=== PATIENT | male | born 1995 | race Caucasian/White ===

== ENCOUNTER 2017-02-25 18:22 | Emergency (ER) | payer BC ==
--- NOTE | 2017-02-25 20:37 | ED ---
Upper Extremity Pain - HPI Summary HPI Summary: 21 yr old male with left ring finger pain. he jammed it on a basketball yesterday. Complains of pain,5/10 at the PIP joint 4th digit with associated swelling, decreased range of motion. - History of Current Complaint Chief Complaint: UCUpperExtremity Stated Complaint: FINGER INJURY Time Seen by Provider: 02/25/17 20:22 - Allergies/Home Medications Allergies/Adverse Reactions: Allergies Allergy/AdvReac Type Severity Reaction Status Date / Time No Known Allergies Allergy Verified 02/25/17 20:19 Home Medications: Home Medications NK [No Home Medications Reported] 02/25/17 [History Confirmed 02/25/17] PMH/Surg Hx/FS Hx/Imm Hx Previously Healthy: Yes - Surgical History Hx Anesthesia Reactions: No Infectious Disease History: No Infectious Disease History: Denies: Traveled Outside the [place] in Last 30 Days - Family History Known Family History: Positive: None - Social History Occupation: Student Alcohol Use: Weekly Alcohol Amount: once a week Substance Use Type: Reports: None Smoking Status (MU): Never Smoked Tobacco Review of Systems Constitutional: Negative All Other Systems Reviewed And Are Negative: Yes Physical Exam Triage Information Reviewed: Yes Vital Signs On Initial Exam: Initial Vitals Temp Pulse Resp BP Pulse Ox 98.7 F 60 15 122/71 100 02/25/17 20:15 02/25/17 20:15 02/25/17 20:15 02/25/17 20:15 02/25/17 20:15 Vital Signs Reviewed: Yes Appearance: Positive: Well-Appearing, No Pain Distress Skin: Positive: Warm Head/Face: Positive: Normal Head/Face Inspection Eyes: Positive: EOMI ENT: Positive: Normal ENT inspection Neck: Positive: Nontender Respiratory/Lung Sounds: Positive: Clear to Auscultation, Breath Sounds Present Cardiovascular: Positive: RRR. Negative: Murmur Musculoskeletal: Positive: Other - left hand ring finger with swelling and bruise over the PIP joint. He has intact sensation and neurovasculature. decreased ROM to the PIP of that same finger. Neurological: Positive: Sensory/Motor Intact, Alert, Oriented to Person Place, Time Psychiatric: Positive: Normal - Marian Coma Scale Best Eye Response: 4 - Spontaneous Best Motor Response: 6 - Obeys Commands Best Verbal Response: 5 - Oriented Procedures - Splinting Location: left ring finger Pre-Made Type: metal - 4 1/2 inch long foam metal splint Splint: volar - with 3rd and 4th fingers taped together. Pre-Proc Neuro Vasc Exam: normal Post-Proc Neuro Vasc Exam: normal Diagnostics - Vital Signs Vital Signs Temp Pulse Resp BP Pulse Ox 02/25/17 20:15 98.7 F 60 15 122/71 100 - Laboratory Lab Statement: Any lab studies that have been ordered have been reviewed, and results considered in the medical decision making process. - Radiology left ring finger Xray Interpretation: Positive (See Comments) - [facility] Radiology Interpretation Completed By: Radiologist Course/Dx - Course Course Of Treatment: patient with finger sprain left ring. - Diagnoses Provider Diagnoses: Sprain of finger of left hand Discharge - Discharge Plan Condition: Good Disposition: HOME Patient Education Materials: Finger Sprain (ED) Referrals: No Primary Care Phys,NOPCP [Primary Care Provider] - Ernesto Nguyen MD [Medical Doctor] - 2 Days
--- NOTE | 2017-02-25 21:03 | RAD ---
Indication: Fourth finger injury. 3 views of left ring finger are reviewed. Soft tissue swelling is noted at the proximal interphalangeal joint. No fracture is noted. IMPRESSION: Proximal interphalangeal joint swelling without fracture.
== END 2017-02-25 21:22 | disposition home or self-care (01) ==
LOC: UCCORT 18:22
DX: S63.615A Unspecified sprain of left ring finger, initial encounter (principal); W21.05XA Struck by basketball, initial encounter; Y93.67 Activity, basketball; Y92.9 Unspecified place or not applicable
CPT/HCPCS: 73140; 99201; G0463

== ENCOUNTER 2017-07-09 15:50 | Emergency (ER) | payer BC ==
--- NOTE | 2017-07-09 18:34 | UC ---
Skin Complaint HPI - HPI Summary HPI Summary: One week of awareness of nodule in the right parietal area. concerned and came for assessment. - History of Current Complaint Time Seen by Provider: 07/09/17 18:19 Stated Complaint: SKIN COMPLAINT (HEAD) Hx Obtained From: Patient Onset/Duration: Gradual Onset, Lasting Days - 7 Timing: Constant Onset Severity: Mild Current Severity: Mild Location: Discrete Aggravating Factor(s): Touch Alleviating Factor(s): Nothing Associated Signs & Symptoms: Positive: Negative - Allergy/Home Medications Allergies/Adverse Reactions: Allergies Allergy/AdvReac Type Severity Reaction Status Date / Time No Known Allergies Allergy Verified 02/25/17 20:19 Review of Systems Constitutional: Negative Skin: Other - nodule on scalp Eyes: Negative ENT: Negative Respiratory: Negative Cardiovascular: Negative Gastrointestinal: Negative Genitourinary: Negative Motor: Negative Neurovascular: Negative Musculoskeletal: Negative Neurological: Negative Psychological: Negative Is Patient Immunocompromised?: No All Other Systems Reviewed And Are Negative: Yes PMH/Surg Hx/FS Hx/Imm Hx Previously Healthy: Yes - Surgical History Surgical History: None - Family History Known Family History: Positive: Diabetes - maternal side - Social History Occupation: Student Lives: Dormitory/Roommates Alcohol Use: Weekly Alcohol Amount: once a week Substance Use Type: None Smoking Status (MU): Never Smoked Tobacco Physical Exam Triage Information Reviewed: Yes Appearance: Well-Appearing Eye Exam: Normal ENT Exam: Normal Dental Exam: Normal Neck exam: Normal Neck: Positive: Supple, Nontender, No Lymphadenopathy Respiratory: Positive: Lungs clear, Normal breath sounds Cardiovascular: Positive: RRR, No Murmur Musculoskeletal Exam: Normal Neurological Exam: Normal Psychological Exam: Normal Skin Exam: Other - 13mm x 10mm nodule right parietal area, firm, mobile. Course/Dx - Course Course Of Treatment: sebaceous cyst--observe, can elect excision in the future. - Differential Diagnoses - Skin Complaint Differential Diagnoses: Abscess, Other - cyst - Diagnoses Provider Diagnoses: sebaceous cyst Discharge - Sign-Out/Discharge Documenting (check all that apply): Discharge - Discharge Plan Condition: Stable Disposition: HOME Patient Education Materials: Cyst (ED) Referrals: No Primary Care Phys,NOPCP [Primary Care Provider] - Additional Instructions: As discussed, the nodule is a 13 x 10mm cyst, likely sebaceous. You can elect to have this removed in the summer when you are at home. - Billing Disposition and Condition Condition: STABLE Disposition: HOME
== END 2017-07-09 18:54 | disposition home or self-care (01) ==
LOC: UCCORT 15:50
DX: L72.3 Sebaceous cyst (principal)
CPT/HCPCS: 99211; G0463